=== PATIENT | female | born 1960 | race Caucasian/White ===

== ENCOUNTER 2017-07-01 16:06 | Emergency (ER) | payer BC ==
[2015-09-07 12:22] VITALS: Ht 167.6 cm; Wt 61.2 kg
[~2017-07-01] VITALS: Ht 167.6 cm; Wt 61.2 kg
[~2017-07-01 16:06] MED LIST: AMOX-559 PO; ASPI-757 PO; ASPI81TA94 PO; AUG875 PO; AZIT-18 PO; BUPR-136 PO; CEF300 PO; CEP500 PO; CYCL10TA29 PO; DIAZ-308 PO; DULO20CA16 PO; ENO30I SC; ENO40I SQ; EST42T PV; ESTR0.62 PO; FLU20 PO; GUAI10LI10 PO; HYDR-2946 PO; HYDR-317 PO; LEV75 PO; LEVO-85 PO; LEVO50TA86 PO; LEVO75TA68 PO; LOR5/325 PO; METR-1 PO; NIA500 PO; OMEP-218 PO; OXYC-865 PO; PARO10TA80 PO; PRAV80TA29 PO; SIMV10TA96 PO; VENL75TA12 PO; WAR5 PO
[2017-07-01] MEDS ORDERED: ASPIRIN 81 MG CHEW PO ONE (16:40)
--- NOTE | 2017-07-01 16:42 | EKG ---
FACILITY: [facility] - [place] PATIENT NAME: JUJU MARX : [id number] MR: [id number] V: [id number] EXAM DATE: ORDERING PHYSICIAN: MANISH GIANG TECHNOLOGIST: Test Reason : Blood Pressure : / mmHG Vent. Rate : 099 BPM Atrial Rate : 096 BPM P-R Int : 178 ms QRS Dur : 072 ms QT Int : 336 ms P-R-T Axes : 090 039 040 degrees QTc Int : 431 ms Sinus rhythm with frequent PACs Possible previous anterior/septal infarct vs. lead placement Abnormal ECG Confirmed by CATHLEEN MCKEON ([id number]) on 07/02/2017 6:46:30 AM Referred By: Confirmed By:CATHLEEN MKCEON
--- NOTE | 2017-07-01 16:47 | ER Report ---
History and Physical Time Seen By MD: 16:15 Hx. of Stated Complaint: CHEST TIGHTNESS FOR THE LAST 2 WEEKS. PAIN RADIATES UP INTO NECK AND LEFT SIDE OF COLLARBONE HPI/ROS CHIEF COMPLAINT: Chest pain HISTORY OF PRESENT ILLNESS: Patient is a 56-year-old female who presents to ED with complaint of chest pain that started about 2 weeks ago. She states that she has had pain intermittently. She states that she has noted this with exertion at times and also with drinking wine. She has noted some radiation of the pain into her car when area and also left upper arm area. She states that she felt her heart was racing intermittently as well has had problems with this in the past. Patient states that she has recently started a cholesterol medication due to hyperlipidemia. She denies any blood pressure issues. She denies any smoking. She denies any previous blood clots. She did complete a trip by air to [facility] 2 months ago. She states that she had noticed some left leg pain but no swelling recently. She denies any acute injury. She has felt intermittently short of breath. Patient states that she has no history of cardiac disease. She states that she has had mitral valve prolapse as well as tachycardia in the past. She denies any abnormal heart rhythms. REVIEW OF SYSTEMS: Constitutional: No fever, no chills. Eyes: No discharge. ENT: No sore throat. Cardiovascular: See history of present illness. Respiratory: See history of present illness. No cough. Gastrointestinal: No abdominal pain, no vomiting. Genitourinary: No hematuria. Musculoskeletal: No back pain. Skin: No rashes. Neurological: No headache. Allergies: Coded Allergies: corn (Verified Allergy, Mild, RUNNY NOSE, 04/09/17) Home Meds Reported Medications Bupropion Hcl (BUPROPION HCL SR) 150 Mg Tablet.er, 150 MG PO BID 04/09/17 Aspirin (ASPIRIN) 81 Mg Tab.chew, 81 MG PO QDAY, TAB.CHEW 04/09/17 Pravastatin Sodium (PRAVASTATIN SODIUM) 80 Mg Tablet, 80 MG PO QDAY 04/09/17 Levothyroxine Sodium (LEVOTHYROXINE SODIUM) 50 Mcg Tablet, 50 MCG PO QDAY 11/11/14 Venlafaxine Hcl (VENLAFAXINE HCL) 75 Mg Tab, 75 MG PO TID, #5 TAB TAKE 1 TABLET BY MOUTH THREE TIMES A DAY 11/26/13 Discontinued Scripts Cefdinir 300 Mg Cap (OMNICEF 300 MG CAP (OR EQUIV)) 300 Mg Cap, 300 MG PO BID for 10 Days, #20 CAP Prov:ALISE TORRES JR, MD 04/08/17 Reviewed Nurses Notes: Yes Old Medical Records Reviewed: Yes Hx Smoking: No Smoking Status: Never Smoker Exposure to Second Hand Smoke?: No Hx Substance Use Disorder: No Hx Alcohol Use: No Constitutional Vital Sign - Last 24 Hours 07/01/17 07/01/17 07/01/17 07/01/17 16:09 16:11 16:21 16:30 Temp 97.6 Pulse 95 88 Resp 24 32 B/P (MAP) 147/86 (106) 147/86 141/112 (122) Pulse Ox 97 95 O2 Delivery Room Air 07/01/17 07/01/17 07/01/17 07/01/17 16:36 16:45 16:51 17:00 Pulse 91 86 Resp 10 26 B/P (MAP) 133/95 (108) 129/91 (104) Pulse Ox 98 96 07/01/17 07/01/17 07/01/17 07/01/17 17:06 17:15 17:21 17:30 Pulse 118 B/P (MAP) 118/86 (97) 116/73 (87) Pulse Ox 96 07/01/17 07/01/17 07/01/17 07/01/17 17:45 17:56 18:00 18:05 Pulse 91 91 Resp 14 9 B/P (MAP) 137/90 (106) 123/80 (94) Pulse Ox 94 96 07/01/17 07/01/17 07/01/17 07/01/17 18:15 18:20 18:30 18:35 Pulse 86 88 Resp 23 19 B/P (MAP) 124/80 (95) 117/93 (101) Pulse Ox 95 94 07/01/17 07/01/17 07/01/17 18:45 18:50 19:00 Pulse 87 Resp 10 B/P (MAP) 121/87 (98) 113/93 (100) Pulse Ox 95 Physical Exam General Appearance: The patient is alert, has no immediate need for airway protection and no signs of toxicity. Patient appears to be no acute distress. Eyes: Pupils equal and round no pallor or injection. ENT, Mouth: Mucous membranes are moist. Respiratory: There are no retractions, lungs are clear to auscultation. Cardiovascular: Regular rate and rhythm. Gastrointestinal: There is some epigastric and left upper quadrant tenderness with palpation. No rebound or guarding. Normal bowel sounds in all 4 quadrants.. Neurological: Cranial nerves II through XII intact. Skin: Warm and dry, no rashes. Musculoskeletal: Neck is supple non tender. Extremities are nontender, nonswollen and have full range of motion. No edema noted to bilateral lower extremities. PT and DP pulses are 2+ with normal capillary refill. DIFFERENTIAL DIAGNOSIS: After history and physical exam differential diagnosis was considered for chest pain including but not limited to myocardial ischemia, pericarditis pulmonary embolus, chest wall pain, pleural inflammation and pulmonary infectious causes. Medical Decision Making Data Points Result Diagram: 07/01/17 1625 07/01/17 1625 Laboratory Hematology Test 07/01/17 16:25 07/01/17 19:39 Red Blood Count 5.17 M/uL (4.17-5.56) Mean Corpuscular Volume 88.0 fL (80.0-96.0) Mean Corpuscular Hemoglobin 29.3 pg (26.0-33.0) Mean Corpuscular Hemoglobin Concent 33.3 g/dL (32.0-36.0) Red Cell Distribution Width 13.4 % (11.5-14.5) Mean Platelet Volume 7.3 fL (7.2-11.1) Neutrophils (%) (Auto) 47.8 % (39.4-72.5) Lymphocytes (%) (Auto) 31.8 % (17.6-49.6) Monocytes (%) (Auto) 11.7 % (4.1-12.4) Eosinophils (%) (Auto) 7.6 % (0.4-6.7) Basophils (%) (Auto) 1.1 % (0.3-1.4) Nucleated RBC Relative Count (auto) 0.0 /100WBC Neutrophils # (Auto) 2.9 K/uL (2.0-7.4) Lymphocytes # (Auto) 1.9 K/uL (1.3-3.6) Monocytes # (Auto) 0.7 K/uL (0.3-1.0) Eosinophils # (Auto) 0.5 K/uL (0.0-0.5) Basophils # (Auto) 0.1 K/uL (0.0-0.1) Nucleated RBC Absolute Count (auto) 0.00 K/uL Peripheral Blood Smear No Y/N Prothrombin Time 13.0 seconds (12.0-14.4) Prothromb Time International Ratio 0.98 Activated Partial Thromboplast Time 29 seconds (23-35) D-Dimer Quantitative (PE/DVT) 0.31 ug/ml (0-0.50) Sodium Level 138 mmol/L (137-145) Potassium Level 3.9 mmol/L (3.5-5.0) Chloride Level 98 mmol/L (98-107) Carbon Dioxide Level 27 mmol/L (22-31) Blood Urea Nitrogen 23 mg/dl (7-18) Creatinine 0.80 mg/dl (0.52-1.04) Glomerular Filtration Rate Calc > 60.0 Random Glucose 93 mg/dl (75-110) Calcium Level 9.5 mg/dl (8.4-10.2) Total Bilirubin 0.4 mg/dl (0.2-1.3) Aspartate Amino Transf (AST/SGOT) 31 U/L (0-35) Alanine Aminotransferase (ALT/SGPT) 39 U/L (0-56) Alkaline Phosphatase 95 U/L (0-126) B-Type Natriuretic Peptide 8 pg/ml (0-100) Total Protein 8.4 gm/dl (6.3-8.2) Albumin 4.4 g/dl (3.5-5.0) Troponin I < 0.012 ng/ml Chemistry Test 07/01/17 16:25 07/01/17 19:39 White Blood Count 6.0 k/uL (4.5-11.0) Red Blood Count 5.17 M/uL (4.17-5.56) Hemoglobin 15.2 g/dL (12.0-16.0) Hematocrit 45.5 % (34.0-47.0) Mean Corpuscular Volume 88.0 fL (80.0-96.0) Mean Corpuscular Hemoglobin 29.3 pg (26.0-33.0) Mean Corpuscular Hemoglobin Concent 33.3 g/dL (32.0-36.0) Red Cell Distribution Width 13.4 % (11.5-14.5) Platelet Count 323 K/uL (150-450) Mean Platelet Volume 7.3 fL (7.2-11.1) Neutrophils (%) (Auto) 47.8 % (39.4-72.5) Lymphocytes (%) (Auto) 31.8 % (17.6-49.6) Monocytes (%) (Auto) 11.7 % (4.1-12.4) Eosinophils (%) (Auto) 7.6 % (0.4-6.7) Basophils (%) (Auto) 1.1 % (0.3-1.4) Nucleated RBC Relative Count (auto) 0.0 /100WBC Neutrophils # (Auto) 2.9 K/uL (2.0-7.4) Lymphocytes # (Auto) 1.9 K/uL (1.3-3.6) Monocytes # (Auto) 0.7 K/uL (0.3-1.0) Eosinophils # (Auto) 0.5 K/uL (0.0-0.5) Basophils # (Auto) 0.1 K/uL (0.0-0.1) Nucleated RBC Absolute Count (auto) 0.00 K/uL Peripheral Blood Smear No Y/N Prothrombin Time 13.0 seconds (12.0-14.4) Prothromb Time International Ratio 0.98 Activated Partial Thromboplast Time 29 seconds (23-35) D-Dimer Quantitative (PE/DVT) 0.31 ug/ml (0-0.50) Glomerular Filtration Rate Calc > 60.0 Calcium Level 9.5 mg/dl (8.4-10.2) Total Bilirubin 0.4 mg/dl (0.2-1.3) Aspartate Amino Transf (AST/SGOT) 31 U/L (0-35) Alanine Aminotransferase (ALT/SGPT) 39 U/L (0-56) Alkaline Phosphatase 95 U/L (0-126) B-Type Natriuretic Peptide 8 pg/ml (0-100) Total Protein 8.4 gm/dl (6.3-8.2) Albumin 4.4 g/dl (3.5-5.0) Troponin I < 0.012 ng/ml Coagulation Test 07/01/17 16:25 Prothrombin Time 13.0 seconds Prothromb Time International Ratio 0.98 Activated Partial Thromboplast Time 29 seconds D-Dimer Quantitative (PE/DVT) 0.31 ug/ml EKG/Imaging EKG Interpretation 12 lead EK:16 Rhythm: Normal sinus rhythm, sinus arrhythmia Waldo: normal QRS: normal ST segments: No acute ST changes identified. 12 lead EK:58 Rhythm: Sinus rhythm, rate 82 bpm Waldo: normal QRS: normal ST segments: No acute ST changes identified. Monitor Interpretation: Normal Sinus Rhythm ED Course/Re-evaluation ED Course Obtain labs, EKG, chest x-ray. Patient will be given aspirin 324 mg by mouth now. Wells Criteria for PE: 1.5 - Low Risk HEART Score: 3 - Low Score 07/01/2017 6:03:14 pm -discussed labs and chest x-ray with patient. Everything appears to be essentially normal this point. Discussed that will check a TSH as well as repeat 3 hour troponin. 07/01/2017 8:29:33 pm - this normal troponin and EKG with patient. She was having some palpitations and tachycardia so will wear a Holter monitor for her. Will give her referral to cardiology. Advised follow-up with primary care provider as well. Decision to Disposition Date: Jul 01, 2017 Decision to Disposition Time: 20:30 Depart Departure Latest Vital Signs Vital Signs Date Time Temp Pulse Resp B/P (MAP) Pulse Ox O2 Delivery O2 Flow Rate FiO2 07/01/17 19:00 113/93 (100) 07/01/17 18:50 87 10 95 07/01/17 16:11 97.6 Room Air Impression: Primary Impression: Chest pain Additional Impression: Palpitations Condition: Improved Disposition: HOME OR SELF-CARE Referrals: CARDIOLOGY Patient Instructions: Chest Pain (ED), Holter Monitoring (ED), Palpitations (ED ) Additional Instructions: Follow-up with primary care provider in cardiology in 2-3 days. If having any worsening or concerning symptoms may return to the emergency department. Problem Qualifiers Primary Impression: Chest pain Chest pain type: unspecified Qualified Codes: R07.9 - Chest pain, unspecified MANISH GIANG PA-C Jul 01, 2017 16:47
[2017-07-01 16:58] LABS: PLATELET COUNT, AUTOMATED 323 K/uL (150-450)
[2017-07-01 17:11] LABS: INR 0.98
--- NOTE | 2017-07-01 17:18 | RADIOLOGY IMAGING REPORT ---
FACILITY: [facility] - [place] PATIENT NAME: Donna Caballero : 1960 MR: [id number] V: [id number] EXAM DATE: ORDERING PHYSICIAN: MANISH GIANG TECHNOLOGIST: Location: [facility] [place] Patient: Donna Caballeor : 1960 Visit/Account:[id number] Date of Sevice: 07/01/2017 Exam type: CHEST SINGLE AP History: Chest Pain, tightness x2 weeks, nonsmoker, history of PE and pneumonia Comparison: October 22, 2015. Findings: EKG leads overlie the thorax. The lungs are free of acute effusions, infiltrates or edema. There is no demonstration of a pneumothorax or pneumomediastinum. The cardiac silhouette is normal. Patient slightly rotated towards the right IMPRESSION: 1. No acute cardiopulmonary process is seen Report Dictated By: Radha Jernigan MD at 07/01/2017 5:12 PM Report E-Signed By: Radha Jernigan MD at 07/01/2017 5:14 PM WSN:[id number]
[2017-07-01 20:15] VITALS: BP 133/95
--- NOTE | 2017-07-01 21:22 | EKG ---
FACILITY: [facility] [place] PATIENT NAME: JUJU MARX : [id number] MR: [id number] V: [id number] EXAM DATE: ORDERING PHYSICIAN: MANISH GIANG TECHNOLOGIST: Merissa Test Reason : CP Blood Pressure : / mmHG Vent. Rate : 082 BPM Atrial Rate : 082 BPM P-R Int : 158 ms QRS Dur : 068 ms QT Int : 396 ms P-R-T Axes : 061 059 066 degrees QTc Int : 462 ms Sinus rhythm Possible previous anterior/septal infarct vs. lead placement Abnormal ECG Confirmed by CATHLEEN MCKEON ([id number]) on 07/02/2017 6:50:19 AM Referred By: Confirmed By:CATHLEEN MCKEON
== END 2017-07-01 21:17 | disposition home or self-care (01) ==
LOC: ER 16:09
DX: R07.89 Other chest pain (principal); R00.2 Palpitations; R94.31 Abnormal electrocardiogram [ECG] [EKG]; E78.5 Hyperlipidemia, unspecified; R06.02 Shortness of breath
CPT/HCPCS: 71045; 82040; 82247; 82310; 82374; 82435; 82565; 82947; 83880; 84075; 84132; 84155; 84295; 84436; 84443; 84450; 84460; 84484; 84520; 85025; 85379; 85610; 85730; 93005; 99284

== ENCOUNTER → 2017-07-02 | Outpatient (CLI) | payer BC ==
[2015-09-07 12:22] VITALS: BMI 23.5
--- NOTE | 2017-07-05 03:28 | RT HOLTER TEST ---
[place] [facility] [place] NAME: JUJU MARX : [id number] MR: [id number] V: [id number] EXAM DATE: ORDERING PHYSICIAN: MANISH GIANG TECHNOLOGIST: JULIO CESAR Hood-up date: 2017-07-02 12:52:00 Duration: 47:59:00 Test Indications: CP, PALPITATIONS, TACHYCARDIA Medications: 628439 QRS complexes 310 Ventricular ectopics which represent <1 % of total QRS comp. 01683 Supraventricular ectopics which represent 4 % of total QRS comp. * Paced QRS complexes which represent % of total QRS comp. VENTRICULAR ECTOPY 308 Isolated 0 Bigeminal Cycles 1 Couplets 0 Runs 0 Beats in Runs * Beats LONGEST at * BPM at :: -- * Beats FASTEST at * BPM at :: -- SUPRAVENTRICULAR ECTOPY 25839 Isolated 646 Couplets 107 Runs 337 Beats in Runs 4 Beats LONGEST at 158 BPM at 11:10:21 2017-07-03 3 Beats FASTEST at 182 BPM at 05:59:43 2017-07-03 HEART RATES 71 MIN at 19:09:21 2017-07-02 99 AVG 200 MAX at 08:17:42 2017-07-04 LONGEST RR 1.264 secs at 06:09:56 2017-07-04 S-T LEVELS Channel 1 -12.800 mm MIN at 12:52:00 2017-07-02 -12.800 mm MAX at 12:52:00 2017-07-02 Channel 2 -12.800 mm MIN at 12:52:00 2017-07-02 -12.800 mm MAX at 12:52:00 2017-07-02 Channel 3 -12.800 mm MIN at 12:52:00 2017-07-02 -12.800 mm MAX at 12:52:00 2017-07-02 Basic rhythm is sinus. Multiple premature ventricular beats without malignant arrhythmia. Very frequent premature atrial beats mostly from ectopic atrial pacemakers. Frequent runs of SVT with rates up to approx. 200/min. Confirmed by CHAR ALBERTO ([id number]) on 07/05/2017 3:27:25 AM Referred By: MORELIA BHARDWAJ Overread By: CHAR ALBERTO
== END ==
LOC: RESP 12:32
PROVIDERS: ATTEND Physician Assistant Medical
DX: R07.9 Chest pain, unspecified (principal); R00.0 Tachycardia, unspecified
CPT/HCPCS: 93225; 93226

== ENCOUNTER → 2017-07-15 | Outpatient (CLI) | payer BC ==
[2015-09-07 12:22] VITALS: BMI 23.5
--- NOTE | 2017-07-16 09:56 | RADIOLOGY IMAGING REPORT ---
FACILITY: [facility] - [place] PATIENT NAME: JUJU MARX : [id number] MR: [id number] V: [id number] EXAM DATE: ORDERING PHYSICIAN: MORELIA BHARDWAJ TECHNOLOGIST: Ralph Mart EXAMINATION:TWO-DIMENSIONAL ECHOCARDIOGRAPH REASON:SUPERVENTRICULAR TACHYCARDIA. 2D Measurements (normal values in centimeters) LV endLV endRV endVent.LV PostAorticLeftPercent DiastolicSystolicDiastolicSeptumWallRootAtriumShortening (3.5-5.7)(0.9-2.6)(0.6-1.1)(0.6-1.1)(2.0-3.7)(1.9-4.0)(25-35%) [id number]% STROKE VOLUME: 47 mL ESTIMATED EJECTION FRACTION:70% PARASTERNAL LONG AXIS: Overall left ventricular systolic function appears to be normal. The patient appears to be in sinus rhythm. The right ventricle is mildly enlarged. The other chamber sizes are normal. The right ventricle appears to contract normally with a TAPSE 1.8. Color examination of the aortic valve was unremarkable. Color examination of the mitral valve revealed a trace of mitral insufficiency present. The aortic valve and mitral valve both appear to open normally. PARASTERNAL SHORT AXIS: Overall left ventricular function again appears to be normal. Chamber sizes appear to be normal. The right ventricle being slightly enlarged. Color examination of the pulmonic valve reveals a trace of pulmonic insufficiency. The aortic valve is trileaflet in configuration and appears to open normally. The pulmonic valve also appears to open normally. Tricuspid valve appears normal with some tricuspid insufficiency present. APICAL FOUR AND TWO CHAMBER: Normal left ventricular systolic function. Trace amount of tricuspid insufficiency is noted. Tricuspid regurgitation V-max is measured at 2.35 m/sec. Estimated right atrial pressure is 8 mmHg. The aortic valve area and mitral valve area both measure within normal range at 2.9 and 3.7 cm2 respectively. Left atrial and right atrial volumes are measured within normal range at 18 and 17 mL/m2. Questionable small atrial septal defect with left to right shunt is noted. No wall motion abnormal lities are noted. SUBCOSTAL VIEW: No pericardial effusion was noted. Questionable small atrial septal defect is noted mid-septum. IVC is normal in size. Agitated saline bubble contrast study was done. No obvious bubbler crossover was noted but Valsalva maneuver was not done. Doppler examination of the mitral valve in diastole does reveal an E to A wave reversal. OVERALL IMPRESSION: 1. Normal left ventricular ejection fraction of 70% with a grade 1/4 decrease in diastolic function. 2. Normal chamber sizes with the right ventricle being borderline enlarged. All of the other chamber sizes are normal. 3. A trileaflet aortic valve with no aortic stenosis nor insufficiency. 4. A trace of pulmonic insufficiency and a trace to mild amount of tricuspid insufficiency with estimated right ventricular systolic pressures of 30 mmHg which is within normal ranges. 5. A questionable small mid-atrial septal defect although an agitated saline bubble contrast study was done and no bubble crossovers were seen but a Valsalva maneuver was not done. There was a suggestion of a small asd on color exam. 6. No thrombi noted in any of the chambers but the left atrial appendage was not seen. 7. The patient appears to be in sinus rhythm throughout this echocardiograph. Dictated by: Parveen Bruno M.D. on 07/15/2017 at 21:13 Transcribed by: JI on 07/15/2017 at 23:05 Approved by: Parveen Bruno M.D. on 07/16/2017 at 9:54 [facility]
== END ==
LOC: US 01:39
PROVIDERS: ATTEND Family Medicine
DX: I51.7 Cardiomegaly (principal); I37.1 Nonrheumatic pulmonary valve insufficiency; I07.1 Rheumatic tricuspid insufficiency
CPT/HCPCS: 93306

== ENCOUNTER → 2017-09-17 | Outpatient (REF) | payer BC ==
[2015-09-07 12:22] VITALS: BMI 23.5
[2017-09-17 18:02] LABS: PLATELET COUNT, AUTOMATED 358 K/uL (150-450)
== END ==
PROVIDERS: ATTEND Nurse Practitioner Family
DX: R53.83 Other fatigue (principal)
CPT/HCPCS: 82040; 82247; 82310; 82374; 82435; 82565; 82947; 84075; 84132; 84155; 84295; 84443; 84450; 84460; 84520; 85025

== ENCOUNTER 2017-10-21 12:03 | Emergency (ER) | payer BC ==
[2015-09-07 12:22] VITALS: Wt 63.5 kg
[2017-10-21] MEDS ORDERED: NS(*) 0.9% 1000 ML BAG 1,000 ML IV ONE (12:23)
--- NOTE | 2017-10-21 12:33 | ER Report ---
History and Physical Time Seen By MD: 12:25 Hx. of Stated Complaint: PATIENT REPORTS FEELING ACHY ALL OVER AND IS ALSO REPORTING CHEST PAIN. SHE IS ALSO REPORTING NAUSEA AND SOME DIARRHEA HPI/ROS CHIEF COMPLAINT: Weakness, malaise HISTORY OF PRESENT ILLNESS: Patient is a 57-year-old female who presents the ED with complaint of a one-day history of general malaise and weakness. She states that she 1st started noticed some body aches including some abdominal and chest pain and felt slightly short of breath and weak particularly with walking. She states that she has not noted any fever. 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 She denies any vomiting but has had some nausea and diarrhea. Patient states that she has not taken any medication for her symptoms. She denies any hematuria, dysuria, increased urinary frequency. She states that she has not really noted a cough until she arrived at the emergency room here. She is not injected much fluid due to the nausea. REVIEW OF SYSTEMS: Constitutional: No fever, no chills. Eyes: No discharge. ENT: Patient has noted a sore throat but denies any rhinorrhea Cardiovascular: See history of present illness. No palpitations. Respiratory: See history of present illness. Gastrointestinal: See history of present illness. Genitourinary: See history of present illness. Musculoskeletal: No back pain. Skin: No rashes. Neurological: No headache. Allergies: Coded Allergies: corn (Verified Allergy, Mild, RUNNY NOSE, 04/09/17) Home Meds Reported Medications Bupropion Hcl (BUPROPION HCL SR) 150 Mg Tablet.er, 150 MG PO BID 04/09/17 Aspirin (ASPIRIN) 81 Mg Tab.chew, 81 MG PO QDAY, TAB.CHEW 04/09/17 Pravastatin Sodium (PRAVASTATIN SODIUM) 80 Mg Tablet, 80 MG PO QDAY 04/09/17 Levothyroxine Sodium (LEVOTHYROXINE SODIUM) 50 Mcg Tablet, 50 MCG PO QDAY 11/11/14 Venlafaxine Hcl (VENLAFAXINE HCL) 75 Mg Tab, 75 MG PO TID, #5 TAB TAKE 1 TABLET BY MOUTH THREE TIMES A DAY 11/26/13 Reviewed Nurses Notes: Yes Old Medical Records Reviewed: Yes Hx Smoking: No Smoking Status: Never Smoker Exposure to Second Hand Smoke?: No Hx Substance Use Disorder: No Hx Alcohol Use: No Constitutional Vital Sign - Last 24 Hours 10/21/17 10/21/17 10/21/17 10/21/17 12:09 12:11 12:18 12:30 Temp 98.7 Pulse 118 115 Resp 24 12 B/P (MAP) 138/91 138/91 (107) 135/92 (106) Pulse Ox 95 97 O2 Delivery Room Air 10/21/17 10/21/17 10/21/17 10/21/17 12:33 12:48 13:00 13:03 Pulse 100 95 94 Resp 22 19 10 B/P (MAP) 129/86 (100) Pulse Ox 98 98 98 10/21/17 10/21/17 13:18 13:23 Pulse 92 Resp 9 23 Pulse Ox 98 94 Physical Exam General Appearance: The patient is alert, has no immediate need for airway protection and no signs of toxicity. Patient appears to be in no acute distress. Eyes: Pupils equal and round no pallor or injection. ENT, Mouth: Mucous membranes are moist. Respiratory: There are no retractions, lungs are clear to auscultation. Cardiovascular: Slightly tachycardic with normal rhythm. Gastrointestinal: There is some mild right upper quadrant, epigastric, left per quadrant tenderness with palpation. No rebound or guarding is appreciated. Bowel sounds normal all 4 quadrants. Skin: Warm and dry, no rashes. Musculoskeletal: Neck is supple non tender. Extremities are nontender, nonswollen and have full range of motion. DIFFERENTIAL DIAGNOSIS: After history and physical exam differential diagnosis was considered for abdominal pain including but not limited to appendicitis, cholecystitis, gastritis and urinary tract infection. Medical Decision Making Data Points Result Diagram: 10/21/17 1225 10/21/17 1225 Laboratory Hematology Test 10/21/17 12:25 10/21/17 12:32 10/21/17 13:24 Red Blood Count 4.41 M/uL (4.17-5.56) Mean Corpuscular Volume 83.9 fL (80.0-96.0) Mean Corpuscular Hemoglobin 27.9 pg (26.0-33.0) Mean Corpuscular Hemoglobin Concent 33.3 g/dL (32.0-36.0) Red Cell Distribution Width 13.9 % (11.5-14.5) Mean Platelet Volume 6.9 fL (7.2-11.1) Neutrophils (%) (Auto) 84.7 % (39.4-72.5) Lymphocytes (%) (Auto) 7.9 % (17.6-49.6) Monocytes (%) (Auto) 5.5 % (4.1-12.4) Eosinophils (%) (Auto) 1.3 % (0.4-6.7) Basophils (%) (Auto) 0.6 % (0.3-1.4) Nucleated RBC Relative Count (auto) 0.0 /100WBC Neutrophils # (Auto) 7.1 K/uL (2.0-7.4) Lymphocytes # (Auto) 0.7 K/uL (1.3-3.6) Monocytes # (Auto) 0.5 K/uL (0.3-1.0) Eosinophils # (Auto) 0.1 K/uL (0.0-0.5) Basophils # (Auto) 0.0 K/uL (0.0-0.1) Nucleated RBC Absolute Count (auto) 0.00 K/uL Prothrombin Time 13.1 seconds (12.0-14.4) Prothromb Time International Ratio 0.99 Activated Partial Thromboplast Time 30 seconds (23-35) D-Dimer Quantitative (PE/DVT) 0.53 ug/ml (0-0.50) Sodium Level 139 mmol/L (137-145) Potassium Level 3.9 mmol/L (3.5-5.0) Chloride Level 101 mmol/L (98-107) Carbon Dioxide Level 23 mmol/L (22-31) Blood Urea Nitrogen 14 mg/dl (7-18) Creatinine 0.70 mg/dl (0.52-1.04) Glomerular Filtration Rate Calc > 60.0 Random Glucose 105 mg/dl (75-110) Calcium Level 9.3 mg/dl (8.4-10.2) Total Bilirubin 0.4 mg/dl (0.2-1.3) Aspartate Amino Transf (AST/SGOT) 26 U/L (0-35) Alanine Aminotransferase (ALT/SGPT) 32 U/L (0-56) Alkaline Phosphatase 93 U/L (0-126) Troponin I < 0.012 ng/ml B-Type Natriuretic Peptide 14 pg/ml (0-100) Total Protein 7.9 gm/dl (6.3-8.2) Albumin 4.3 g/dl (3.5-5.0) Lipase 131 U/L (23-300) Influenza Virus Type A (PCR) Negative (NEGATIVE) Influenza Virus Type B (PCR) Negative (NEGATIVE) Urine Color Straw Urine Clarity Clear Urine pH 8.0 pH (4.8-9.5) Urine Specific [place] 1.004 Urine Protein Negative mg/dL (NEGATIVE) Urine Glucose (UA) Negative mg/dL (NEGATIVE) Urine Ketones Negative mg/dL (NEGATIVE) Urine Blood Negative (NEGATIVE) Urine Nitrite Negative (NEGATIVE) Urine Bilirubin Negative (NEGATIVE) Urine Urobilinogen Negative mg/dL (0.2-1.9) Urine Leukocyte Esterase Negative (NEGATIVE) Urine RBC None /HPF (0-2/HPF) Urine WBC None /HPF (0-5/HPF) Urine Squamous Epithelial Cells None /LPF (</=FEW) Urine Bacteria Negative /HPF (NONE-FEW) Urine Mucus None /HPF (NONE-FEW) Chemistry Test 10/21/17 12:25 10/21/17 12:32 10/21/17 13:24 White Blood Count 8.4 k/uL (4.5-11.0) Red Blood Count 4.41 M/uL (4.17-5.56) Hemoglobin 12.3 g/dL (12.0-16.0) Hematocrit 37.0 % (34.0-47.0) Mean Corpuscular Volume 83.9 fL (80.0-96.0) Mean Corpuscular Hemoglobin 27.9 pg (26.0-33.0) Mean Corpuscular Hemoglobin Concent 33.3 g/dL (32.0-36.0) Red Cell Distribution Width 13.9 % (11.5-14.5) Platelet Count 406 K/uL (150-450) Mean Platelet Volume 6.9 fL (7.2-11.1) Neutrophils (%) (Auto) 84.7 % (39.4-72.5) Lymphocytes (%) (Auto) 7.9 % (17.6-49.6) Monocytes (%) (Auto) 5.5 % (4.1-12.4) Eosinophils (%) (Auto) 1.3 % (0.4-6.7) Basophils (%) (Auto) 0.6 % (0.3-1.4) Nucleated RBC Relative Count (auto) 0.0 /100WBC Neutrophils # (Auto) 7.1 K/uL (2.0-7.4) Lymphocytes # (Auto) 0.7 K/uL (1.3-3.6) Monocytes # (Auto) 0.5 K/uL (0.3-1.0) Eosinophils # (Auto) 0.1 K/uL (0.0-0.5) Basophils # (Auto) 0.0 K/uL (0.0-0.1) Nucleated RBC Absolute Count (auto) 0.00 K/uL Prothrombin Time 13.1 seconds (12.0-14.4) Prothromb Time International Ratio 0.99 Activated Partial Thromboplast Time 30 seconds (23-35) D-Dimer Quantitative (PE/DVT) 0.53 ug/ml (0-0.50) Glomerular Filtration Rate Calc > 60.0 Calcium Level 9.3 mg/dl (8.4-10.2) Total Bilirubin 0.4 mg/dl (0.2-1.3) Aspartate Amino Transf (AST/SGOT) 26 U/L (0-35) Alanine Aminotransferase (ALT/SGPT) 32 U/L (0-56) Alkaline Phosphatase 93 U/L (0-126) Troponin I < 0.012 ng/ml B-Type Natriuretic Peptide 14 pg/ml (0-100) Total Protein 7.9 gm/dl (6.3-8.2) Albumin 4.3 g/dl (3.5-5.0) Lipase 131 U/L (23-300) Influenza Virus Type A (PCR) Negative (NEGATIVE) Influenza Virus Type B (PCR) Negative (NEGATIVE) Urine Color Straw Urine Clarity Clear Urine pH 8.0 pH (4.8-9.5) Urine Specific [place] 1.004 Urine Protein Negative mg/dL (NEGATIVE) Urine Glucose (UA) Negative mg/dL (NEGATIVE) Urine Ketones Negative mg/dL (NEGATIVE) Urine Blood Negative (NEGATIVE) Urine Nitrite Negative (NEGATIVE) Urine Bilirubin Negative (NEGATIVE) Urine Urobilinogen Negative mg/dL (0.2-1.9) Urine Leukocyte Esterase Negative (NEGATIVE) Urine RBC None /HPF (0-2/HPF) Urine WBC None /HPF (0-5/HPF) Urine Squamous Epithelial Cells None /LPF (</=FEW) Urine Bacteria Negative /HPF (NONE-FEW) Urine Mucus None /HPF (NONE-FEW) Coagulation Test 10/21/17 12:25 Prothrombin Time 13.1 seconds Prothromb Time International Ratio 0.99 Activated Partial Thromboplast Time 30 seconds D-Dimer Quantitative (PE/DVT) 0.53 ug/ml Urinalysis Test 10/21/17 13:24 Urine Color Straw Urine Clarity Clear Urine pH 8.0 pH (4.8-9.5) Urine Specific [place] 1.004 Urine Protein Negative mg/dL (NEGATIVE) Urine Glucose (UA) Negative mg/dL (NEGATIVE) Urine Ketones Negative mg/dL (NEGATIVE) Urine Blood Negative (NEGATIVE) Urine Nitrite Negative (NEGATIVE) Urine Bilirubin Negative (NEGATIVE) Urine Urobilinogen Negative mg/dL (0.2-1.9) Urine Leukocyte Esterase Negative (NEGATIVE) Urine RBC None /HPF (0-2/HPF) Urine WBC None /HPF (0-5/HPF) Urine Squamous Epithelial Cells None /LPF (</=FEW) Urine Bacteria Negative /HPF (NONE-FEW) Urine Mucus None /HPF (NONE-FEW) EKG/Imaging EKG Interpretation 12 lead EKG: Rhythm: sinus tachycardia, rate [address] segments: No acute ST changes identified. There is some T-wave flattening in V1. Imaging CXR: IMPRESSION: Clear lungs. Report Dictated By: Bob Villavicencio at 10/21/2017 12:50 PM Report E-Signed By: Bob Villavicencio at 10/21/2017 12:50 PM CTA Chest: IMPRESSION: No evidence of pulmonary emboli Previously noted narrowing of the right subclavian vein appears less prominent Small hiatal hernia Report Dictated By: Radha Jernigan MD at 10/21/2017 1:56 PM Report E-Signed By: Radha Jernigan MD at 10/21/2017 2:05 PM ED Course/Re-evaluation Clinical Indication for ER IV: Hydration ED Course Will obtain labs. Patient will be given 1 L normal saline bolus. 10/21/2017 1:38:44 pm -discussed all lab results, EKG, chest x-ray with patient. All labs are essentially normal except for a slightly elevated d- dimer. Given her shortness of breath and initial tachycardia will obtain CT of the chest. Her tachycardia has improved into the 1 L normal saline and her nausea has also improved with 4 mg IV Zofran. 10/21/2017 2:17:35 pm - discussed the CT of the chest with patient. There appears to be no bone or and black. Given her symptoms she likely has some viral infection. Will prescribe her some Zofran and she may take Tylenol or Profen for body aches as needed. Decision to Disposition Date: Oct 21, 2017 Decision to Disposition Time: 14:18 Depart Departure Latest Vital Signs Vital Signs Date Time Temp Pulse Resp B/P (MAP) Pulse Ox O2 Delivery O2 Flow Rate FiO2 10/21/17 13:23 23 94 10/21/17 13:18 92 10/21/17 13:00 129/86 (100) 10/21/17 12:09 98.7 Room Air Impression: Primary Impression: URI (upper respiratory infection) Additional Impression: Nausea Condition: Improved Disposition: HOME OR SELF-CARE Referrals: MORELIA BHARDWAJ MD (PCP) New Scripts Ondansetron (ZOFRAN ODT) 4 Mg Tab.rapdis 4 MG PO Q6H Y for NAUSEA/VOMITING, #8 TAB.LIDIA Prov: MANISH GIANG PA-C 10/21/17 Patient Instructions: Acute Nausea and Vomiting (ED), Upper Respiratory Infection (ED) Additional Instructions: Stay well-hydrated. Follow-up with primary care provider in 2-3 days. If having any worsening or concerning symptoms may return to the emergency department. Problem Qualifiers Primary Impression: URI (upper respiratory infection) URI type: unspecified viral URI Qualified Codes: J06.9 - Acute upper respiratory infection, unspecified MANISH GIANG PA-C Oct 21, 2017 12:33
[2017-10-21 12:39] LABS: PLATELET COUNT, AUTOMATED 406 K/uL (150-450)
[2017-10-21] MEDS ORDERED: ONDANSETRON 4 MG/2 ML VIAL IVP ONE (12:45)
--- NOTE | 2017-10-21 12:54 | RADIOLOGY IMAGING REPORT ---
FAC[place] [facility] [place]IENT NAME: Donna Caballero : 1960 MR: [id number] V: [id number] EXAM DATE: ORDERING PHYSICIAN: MANISH GIANG TECHNOLOGIST: Location: [facility] Patient: Donna Caballero : 1960 Visit/Account:[id number] Date of Sevice: 10/21/2017 CHEST PA AND LAT Indication: Chest pain Comparison: Chest x-ray 07/01/2017. Findings: Lungs: Clear. Mediastinum/pulmonary vasculature: Heart size and pulmonary vasculature are normal. Bones/soft tissues: Normal. IMPRESSION: Clear lungs. Report Dictated By: Bob Villavicencio at 10/21/2017 12:50 PM Report E-Signed By: Bob Villavicencio at 10/21/2017 12:50 PM WSN:[id number]
[2017-10-21 12:55] LABS: INR 0.99
[2017-10-21 13:00] VITALS: BP 129/86
--- NOTE | 2017-10-21 13:19 | EKG ---
FACILITY: [facility] - [place] PATIENT NAME: JUJU MARX : [id number] MR: [id number] V: [id number] EXAM DATE: ORDERING PHYSICIAN: MANISH GIANG TECHNOLOGIST: GIGI Andrews Reason : CP Blood Pressure : / mmHG Vent. Rate : 109 BPM Atrial Rate : 109 BPM P-R Int : 146 ms QRS Dur : 072 ms QT Int : 316 ms P-R-T Axes : 064 048 065 degrees QTc Int : 425 ms Sinus tachycardia Septal infarct (cited on or before 21-OCT-2017) Abnormal ECG When compared with ECG of 01-JUL-2017 19:59, Previous ECG has undetermined rhythm, needs review Confirmed by MORELIA CEDENO ([id number]) on 10/22/2017 12:29:27 PM Referred By: MATT Confirmed By:MORELIA CEDENO
[2017-10-21] MEDS ORDERED: IOPAMIDOL 76% 75 ML INFUS BTL 75 ML ONE (13:28)
--- NOTE | 2017-10-21 14:10 | RADIOLOGY IMAGING REPORT ---
FACILITY: [facility] PATIENT NAME: Donna Caballero : 1960 MR: [id number] V: [id number] EXAM DATE: ORDERING PHYSICIAN: MANISH GIANG TECHNOLOGIST: Location: [facility] - [place] Patient: Donna Caballero : 1960 Visit/Account:[id number] Date of Sevice: 10/21/2017 CTA CHEST WW/O CNTR (PULM ANG) HISTORY: elevated d-dimer, tachy, SOB ADDITIONAL HISTORY: None. TECHNIQUE: CTA chest with intravenous contrast. Axial imaging acquired following administration of IV contrast timed for maximum opacification of the pulmonary arterial vasculature. Slab 3-D MIP kristine nstructed images were also created for further evaluation and interpretation. Reconstruction of the [facility] data set includes multiplanar 2-D in the sagittal and coronal planes and 3-D reconstructed bebeto nal slab MIP series. 3-D images were created by the technologist. Dose Lowering Technique One of the following dose optimization techniques was utilized in the performance of this exam: Autom ated exposure control; adjustment of the mA and/or kV according to the patient's size; or use of an i terative reconstruction technique. Specific details can be referenced in the facility's radiology C T exam operational policy. CONTRAST: 75 mL Isovue-370 COMPARISON: March 27, 2016 FINDINGS: Lungs/pleura: Negative. Heart/vessels: There is no evidence of pulmonary emboli. The previously noted narrowing of the righ t subclavian vein at the junction of the chest wall between the clavicle appears less prominent Mediastinum/lymph nodes: Negative. Visualized upper abdomen: There is a small hiatal hernia Bones/soft tissues: Negative. Additional findings: None IMPRESSION: No evidence of pulmonary emboli Previously noted narrowing of the right subclavian vein appears less prominent Small hiatal hernia Report Dictated By: Radha Jernigan MD at 10/21/2017 1:56 PM Report E-Signed By: Radha Jernigan MD at 10/21/2017 2:05 PM WSN:[id number]
[2017-10-21] MEDS ORDERED: ONDA4TAB PO (14:20)
== END 2017-10-21 14:30 | disposition home or self-care (01) ==
LOC: ER 12:06
DX: J06.9 Acute upper respiratory infection, unspecified (principal); R11.0 Nausea; R00.0 Tachycardia, unspecified; R94.31 Abnormal electrocardiogram [ECG] [EKG]
CPT/HCPCS: 71046; 71275; 81001; 83690; 83880; 84484; 85025; 85379; 85610; 85730; 87502; 93005; 96361; 96374; 99284; J2405; J7030; Q9967; 82040; 82247; 82310; 82374; 82435; 82565; 82947; 84075; 84132; 84155; 84295; 84450; 84460; 84520

== ENCOUNTER → 2018-03-24 | Outpatient (REF) | payer BC ==
[2015-09-07 12:22] VITALS: BMI 23.5
[~2018-03-24] MED LIST changes: +ONDA4TAB PO
== END ==
LOC: ZZSENDIN 17:04
PROVIDERS: ATTEND Family Medicine
DX: R51 Headache (principal)
CPT/HCPCS: 85651

== ENCOUNTER 2018-04-12 18:04 | Emergency (ER) | payer BC ==
[2015-09-07 12:22] VITALS: Wt 61.5 kg
--- NOTE | 2018-04-12 18:15 | ER Report ---
History and Physical Time Seen By MD: 18:15 HPI/ROS CHIEF COMPLAINT: Chest pain HISTORY OF PRESENT ILLNESS: 57-year-old female patient presents to emergency room with complaint of chest pain and vomiting. Patient states she's been having chest pain for the past 4 hours. She states that she is also had several bouts of vomiting. She states she's vomited approximately 5 times. She states that she had does have some abdominal pain in the upper abdomen. She denies having any diarrhea. Patient states she did have a bowel movement today. She states she does feel like she is distended. Patient has not taken any medication for this. She states that she has not had any shortness of breath. Patient denies any cardiac history. REVIEW OF SYSTEMS: Respiratory: No cough, no dyspnea. Cardiovascular: As noted above Gastrointestinal: As noted above Musculoskeletal: No back pain. Allergies: Coded Allergies: corn (Verified Allergy, Mild, RUNNY NOSE, 04/09/17) Home Meds Active Scripts Ondansetron (ZOFRAN ODT) 4 Mg Tab.rapdis, 4 MG PO Q6H PRN for NAUSEA/VOMITING, #20 TAB.LIDIA Prov:LUIS E CEJA [facility] 04/12/18 Promethazine Hcl (PROMETHAZINE HCL) 25 Mg Tablet, 25 MG PO Q8H PRN for NAUSEA/VOMITING, #12 TAB Prov:LUIS E CEJA [facility] 04/12/18 Metronidazole (FLAGYL) 500 Mg Tablet, 500 MG PO BID, #14 TAB Prov:LUIS E CEJA [facility] 04/12/18 Ciprofloxacin Hcl (CIPROFLOXACIN HCL) 500 Mg Tablet, 500 MG PO Q12H, #14 TAB Prov:LUIS E CEJA [facility] 04/12/18 Reported Medications Bupropion Hcl (BUPROPION HCL SR) 150 Mg Tablet.er, 150 MG PO BID 04/09/17 Aspirin (ASPIRIN) 81 Mg Tab.chew, 81 MG PO QDAY, TAB.CHEW 04/09/17 Pravastatin Sodium (PRAVASTATIN SODIUM) 80 Mg Tablet, 80 MG PO QDAY 04/09/17 Levothyroxine Sodium (LEVOTHYROXINE SODIUM) 50 Mcg Tablet, 50 MCG PO QDAY 11/11/14 Venlafaxine Hcl (VENLAFAXINE HCL) 75 Mg Tab, 75 MG PO TID, #5 TAB TAKE 1 TABLET BY MOUTH THREE TIMES A DAY 11/26/13 Discontinued Scripts Ondansetron (ZOFRAN ODT) 4 Mg Tab.rapdis, 4 MG PO Q6H PRN for NAUSEA/VOMITING, #8 TAB.LIDIA Prov:MANISH GIANG Andrew GOLDSTEIN 10/21/17 Past Medical/Surgical History Patient has a past medical history of tachycardia, DVT, frequent UTI, osteoporosis, arthritis, foot fracture, back pain, Carisa's disease. Patient has a surgical history of bladder repair, hysterectomy, foot surgery, right total hip, back surgery, eye surgery. Patient has a family medical history of CAD, dementia, [place], CHF, pneumonia, osteoporosis depression. Reviewed Nurses Notes: Yes Hx Smoking: No Smoking Status: Never Smoker Exposure to Second Hand Smoke?: No Hx Substance Use Disorder: No Hx Alcohol Use: No Constitutional Vital Sign - Last 24 Hours 04/12/18 04/12/18 04/12/18 04/12/18 18:04 18:09 18:13 18:19 Temp 98.5 Pulse ??? 108 102 Resp 18 36 B/P (MAP) 137/88 (104) 137/88 Pulse Ox 99 99 O2 Delivery Room Air 04/12/18 04/12/18 04/12/18 04/12/18 18:30 18:34 18:39 19:24 Pulse 95 ??? 92 Resp 11 19 9 B/P (MAP) 133/91 (105) Pulse Ox 98 97 97 04/12/18 04/12/18 04/12/18 04/12/18 19:39 19:44 19:58 19:59 Pulse 93 92 ??? Resp 7 18 13 B/P (MAP) 138/92 (107) Pulse Ox 95 97 97 04/12/18 04/12/18 04/12/18 20:00 20:05 20:20 Pulse 97 115 Resp 31 17 B/P (MAP) 140/84 (102) Physical Exam General Appearance: The patient is alert, has no immediate need for airway protection and no current signs of toxicity. Respiratory: Chest is non tender, lungs are clear to auscultation. Cardiac: regular rate and rhythm Gastrointestinal: Abdomen is soft and tender in the epigastric region, no masses, bowel sounds are hypoactive in the right lower quadrant. Musculoskeletal: Neck: Neck is supple and non tender. Extremities have full range of motion and are non tender. Skin: No rashes or lesions. DIFFERENTIAL DIAGNOSIS: After history and physical exam differential diagnosis was considered for chest pain including but not limited to myocardial ischemia, pericarditis pulmonary embolus, chest wall pain, pleural inflammation and pul monary infectious causes. Also included in the differential is a is abdominal pain including but not limited to appendicitis, cholecystitis, gastritis and urinary tract infection. Medical Decision Making Data Points Result Diagram: 04/12/183 04/12/181812 Laboratory Hematology Test 04/12/18 18:13 04/12/18 19:07 Red Blood Count 5.39 M/uL (4.17-5.56) Mean Corpuscular Volume 80.8 fL (80.0-96.0) Mean Corpuscular Hemoglobin 26.5 pg (26.0-33.0) Mean Corpuscular Hemoglobin Concent 32.8 g/dL (32.0-36.0) Red Cell Distribution Width 17.6 % (11.5-14.5) Mean Platelet Volume 6.8 fL (7.2-11.1) Neutrophils (%) (Auto) 86.4 % (39.4-72.5) Lymphocytes (%) (Auto) 5.6 % (17.6-49.6) Monocytes (%) (Auto) 6.2 % (4.1-12.4) Eosinophils (%) (Auto) 1.5 % (0.4-6.7) Basophils (%) (Auto) 0.3 % (0.3-1.4) Nucleated RBC Relative Count (auto) 0.0 /100WBC Neutrophils # (Auto) 12.1 K/uL (2.0-7.4) Lymphocytes # (Auto) 0.8 K/uL (1.3-3.6) Monocytes # (Auto) 0.9 K/uL (0.3-1.0) Eosinophils # (Auto) 0.2 K/uL (0.0-0.5) Basophils # (Auto) 0.0 K/uL (0.0-0.1) Nucleated RBC Absolute Count (auto) 0.00 K/uL Sodium Level 138 mmol/L (137-145) Potassium Level 3.8 mmol/L (3.5-5.0) Chloride Level 100 mmol/L (98-107) Carbon Dioxide Level 24 mmol/L (22-31) Blood Urea Nitrogen 22 mg/dl (7-18) Creatinine 0.70 mg/dl (0.52-1.04) Glomerular Filtration Rate Calc > 60.0 Random Glucose 107 mg/dl (75-110) Calcium Level 9.1 mg/dl (8.4-10.2) Total Bilirubin 0.3 mg/dl (0.2-1.3) Aspartate Amino Transf (AST/SGOT) 31 U/L (0-35) Alanine Aminotransferase (ALT/SGPT) 36 U/L (0-56) Alkaline Phosphatase 90 U/L (0-126) Troponin I < 0.012 ng/ml Total Protein 8.3 g/dl (6.3-8.2) Albumin 4.6 g/dl (3.5-5.0) Amylase Level 116 U/L (0-110) Lipase 439 U/L (23-300) Urine Color Straw Urine Clarity Clear Urine pH 6.0 pH (4.8-9.5) Urine Specific [place] 1.039 Urine Protein Negative mg/dL (NEGATIVE) Urine Glucose (UA) Negative mg/dL (NEGATIVE) Urine Ketones 20 mg/dL (NEGATIVE) Urine Blood Negative (NEGATIVE) Urine Nitrite Negative (NEGATIVE) Urine Bilirubin Negative (NEGATIVE) Urine Urobilinogen Negative mg/dL (0.2-1.9) Urine Leukocyte Esterase Negative (NEGATIVE) Urine RBC <1 /HPF (0-2/HPF) Urine WBC None /HPF (0-5/HPF) Urine Squamous Epithelial Cells Few /LPF (</=FEW) Urine Bacteria Few /HPF (NONE-FEW) Urine Mucus None /HPF (NONE-FEW) Chemistry Test 04/12/18 18:13 04/12/18 19:07 White Blood Count 14.0 k/uL (4.5-11.0) Red Blood Count 5.39 M/uL (4.17-5.56) Hemoglobin 14.3 g/dL (12.0-16.0) Hematocrit 43.5 % (34.0-47.0) Mean Corpuscular Volume 80.8 fL (80.0-96.0) Mean Corpuscular Hemoglobin 26.5 pg (26.0-33.0) Mean Corpuscular Hemoglobin Concent 32.8 g/dL (32.0-36.0) Red Cell Distribution Width 17.6 % (11.5-14.5) Platelet Count 458 K/uL (150-450) Mean Platelet Volume 6.8 fL (7.2-11.1) Neutrophils (%) (Auto) 86.4 % (39.4-72.5) Lymphocytes (%) (Auto) 5.6 % (17.6-49.6) Monocytes (%) (Auto) 6.2 % (4.1-12.4) Eosinophils (%) (Auto) 1.5 % (0.4-6.7) Basophils (%) (Auto) 0.3 % (0.3-1.4) Nucleated RBC Relative Count (auto) 0.0 /100WBC Neutrophils # (Auto) 12.1 K/uL (2.0-7.4) Lymphocytes # (Auto) 0.8 K/uL (1.3-3.6) Monocytes # (Auto) 0.9 K/uL (0.3-1.0) Eosinophils # (Auto) 0.2 K/uL (0.0-0.5) Basophils # (Auto) 0.0 K/uL (0.0-0.1) Nucleated RBC Absolute Count (auto) 0.00 K/uL Glomerular Filtration Rate Calc > 60.0 Calcium Level 9.1 mg/dl (8.4-10.2) Total Bilirubin 0.3 mg/dl (0.2-1.3) Aspartate Amino Transf (AST/SGOT) 31 U/L (0-35) Alanine Aminotransferase (ALT/SGPT) 36 U/L (0-56) Alkaline Phosphatase 90 U/L (0-126) Troponin I < 0.012 ng/ml Total Protein 8.3 g/dl (6.3-8.2) Albumin 4.6 g/dl (3.5-5.0) Amylase Level 116 U/L (0-110) Lipase 439 U/L (23-300) Urine Color Straw Urine Clarity Clear Urine pH 6.0 pH (4.8-9.5) Urine Specific [place] 1.039 Urine Protein Negative mg/dL (NEGATIVE) Urine Glucose (UA) Negative mg/dL (NEGATIVE) Urine Ketones 20 mg/dL (NEGATIVE) Urine Blood Negative (NEGATIVE) Urine Nitrite Negative (NEGATIVE) Urine Bilirubin Negative (NEGATIVE) Urine Urobilinogen Negative mg/dL (0.2-1.9) Urine Leukocyte Esterase Negative (NEGATIVE) Urine RBC <1 /HPF (0-2/HPF) Urine WBC None /HPF (0-5/HPF) Urine Squamous Epithelial Cells Few /LPF (</=FEW) Urine Bacteria Few /HPF (NONE-FEW) Urine Mucus None /HPF (NONE-FEW) Urinalysis Test 04/12/18 19:07 Urine Color Straw Urine Clarity Clear Urine pH 6.0 pH (4.8-9.5) Urine Specific [place] 1.039 Urine Protein Negative mg/dL (NEGATIVE) Urine Glucose (UA) Negative mg/dL (NEGATIVE) Urine Ketones 20 mg/dL (NEGATIVE) Urine Blood Negative (NEGATIVE) Urine Nitrite Negative (NEGATIVE) Urine Bilirubin Negative (NEGATIVE) Urine Urobilinogen Negative mg/dL (0.2-1.9) Urine Leukocyte Esterase Negative (NEGATIVE) Urine RBC <1 /HPF (0-2/HPF) Urine WBC None /HPF (0-5/HPF) Urine Squamous Epithelial Cells Few /LPF (</=FEW) Urine Bacteria Few /HPF (NONE-FEW) Urine Mucus None /HPF (NONE-FEW) EKG/Imaging EKG Interpretation 12 lead EKG: Rhythm: normal sinus rhythm [place]: normal QRS: normal ST segments: normal Imaging CT abdomen with IV contrast CT pelvis with IV contrast History: Nausea and vomiting COMPARISON STUDIES: none. TECHNIQUE: Axial CT images were obtained through the abdomen and pelvis during injection of nonionic iodinated intravenous contrast. Reformatted coronal and sagittal images were also obtained. Contrast: 75 ml of Isovue-370 IV contrast. One of the following dose optimization techniques was utilized in the performance of this exam: Automated exposure control; adjustment of the mA and/or kV according to the patient's size; or use of an iterative reconstruction technique. Specific details can be referenced in the facility's radiology CT exam operational policy. FINDINGS: Chest bases: Negative Liver: Normal. Gallbladder and bile ducts: Gallbladder is present. Bile ducts are normal caliber. Spleen: size is normal. Pancreas: negative Adrenal glands: negative Kidneys: Left kidney posterior upper pole small, well-defined low-density structures could represent cysts or angiomyolipomas. Pelvic structures: Low pelvic structures are obscured by metal artifact produced by the hip prosthesis. Bowel and mesenteries: There is fluid distention of the colon from the cecum to the distal descending colon. There is a moderate amount of solids within the si gmoid colon and rectum. Small bowel is unremarkable. Ascites: None Vessels: negative Musculoskeletal: Right hip prosthesis is noted. Opposing subchondral sclerosis is seen at both sacroiliac joints. Grade 1 L4-5 anterolisthesis is caused by facet bone hypertrophy. Body wall: Small umbilical hernia contains fat. Lymph node assessment: negative IMPRESSION: Fluid-filled small bowel and colon suggests a bowel inflammatory or infectious process. There is no evidence of bowel obstruction. Report Dictated By: Pushpa Briggs MD at 04/12/2018 7:18 PM Report E-Signed By: Pushpa Briggs MD at 04/12/2018 7:26 PM CHEST PA AND LAT HISTORY: Nausea. Chest pain. COMPARISON: 10/21/2017 FINDINGS: Cardiomediastinal contours: Normal Lungs and pleura: Stable eventration of the right diaphragm. No acute consolidation. Bones/soft tissues: Normal Other findings: None significant IMPRESSION: 1. No acute cardiopulmonary disease. No change. Report Dictated By: Philippe Barclay MD at 04/12/2018 7:10 PM Report E-Signed By: Philippe Barclay MD at 04/12/2018 7:11 PM ED Course/Re-evaluation ED Course Patient was admitted to an exam room, history and physical were obtained. Differential diagnoses were considered. On examination lungs are clear, heart regular, abdomen is soft and tender in the epigastric region. A CBC, CMP, EKG, troponin, chest x-ray and CT scan of abdomen and pelvis were done. Patient did have an elevated white count 14,000 with a left shift. Likewise were normal, troponin was negative. EKG showed a normal sinus rhythm. Chest x-ray showed no acute cardiopulmonary processes. CT scan of the abdomen and pelvis did show fluid-filled small bowel and large intestine consistent with an enteritis. With the elevated white count and the results CT scan that we are likely looking at a infectious enteritis. I discussed the findings with the patient. Patient did have some difficulty controlling her nausea here in the emergency room. We did give HER-2 doses of Zofran 4 mg as well as a dose of 12.5 mg of Phenergan. Patient did have improvement in her nausea. We will go ahead and discharge patient home. We'll start her on Flagyl as well as Cipro to take care of the infection. Patient did inform me that she had been on antibiotics recently, Augmentin for an otitis media, and I do have some concerns about possible C. difficile. However the patient does not have any diarrhea at this time. Patient is to follow-up with her primary care provider in the next week. She is return to emergency room if condition worsens. Patient verbalized understanding and agreement with plan. Decision to Disposition Date: Apr 12, 2018 Decision to Disposition Time: 20:00 Depart Departure Latest Vital Signs Vital Signs Date Time Temp Pulse Resp B/P (MAP) Pulse Ox O2 Delivery O2 Flow Rate FiO2 04/12/18 20:20 115 17 04/12/18 20:00 140/84 (102) 04/12/18 19:59 97 04/12/18 18:13 98.5 Room Air Impression: Primary Impression: Enteritis Condition: Improved Disposition: HOME OR SELF-CARE Referrals: MORELIA BHARDWAJ MD (PCP) New Scripts Ondansetron (ZOFRAN ODT) 4 Mg Tab.rapdis 4 MG PO Q6H PRN for NAUSEA/VOMITING, #20 TAB.LIDIA Prov: LUIS E CEJA 04/12/18 Promethazine Hcl (PROMETHAZINE HCL) 25 Mg Tablet 25 MG PO Q8H PRN for NAUSEA/VOMITING, #12 TAB Prov: LUIS E CEJA 04/12/18 Metronidazole (FLAGYL) 500 Mg Tablet 500 MG PO BID, #14 TAB Prov: LUIS E CEJA 04/12/18 Ciprofloxacin Hcl (CIPROFLOXACIN HCL) 500 Mg Tablet 500 MG PO Q12H, #14 TAB Prov: LUIS E CEJA 04/12/18 Patient Instructions: Enteritis (ED) Additional Instructions: Increase fluid intake. Clear liquid diet for the next 24-48 hours. After that you may advance diet as tolerated starting with complex carbohydrates; rice, bread or pasta. Follow up with your primary care provider in the next week. Return to the ER if condition worsens. LUIS E CEJA Apr 12, 2018 18:15
[2018-04-12] MEDS ORDERED: NS(*) 0.9% 1000 ML BAG 1,000 ML IV ONE (18:22)
[2018-04-12] MEDS ORDERED: ONDANSETRON 4 MG/2 ML VIAL IVP ONE ×2 (18:25→19:15)
[2018-04-12 18:30] LABS: PLATELET COUNT, AUTOMATED 458 K/uL (150-450)
[2018-04-12] MEDS ORDERED: IOPAMIDOL 76% 75 ML INFUS BTL 75 ML ONE (18:34)
--- NOTE | 2018-04-12 18:36 | EKG ---
FACILITY: [facility] PATIENT NAME: JUJU MARX : [id number] MR: [id number] V: [id number] EXAM DATE: ORDERING PHYSICIAN: LUIS E CEJA TECHNOLOGIST: Test Reason : Chest pain Blood Pressure : / mmHG Vent. Rate : 098 BPM Atrial Rate : 098 BPM P-R Int : 146 ms QRS Dur : 068 ms QT Int : 334 ms P-R-T Axes : 056 052 057 degrees QTc Int : 426 ms Normal sinus rhythm Septal infarct , age undetermined Abnormal ECG When compared with ECG of 10.22.2017 No significant change was found Confirmed by Gm Peterson ([id number]) on 04/12/2018 6:47:44 PM Referred By: Confirmed By:Gm Cazares
--- NOTE | 2018-04-12 19:15 | RADIOLOGY IMAGING REPORT ---
[place] [facility] [place]IENT NAME: Donna Caballero : 1960 MR: [id number] V: [id number] EXAM DATE: ORDERING PHYSICIAN: LUIS E CEJA TECHNOLOGIST: Location: [facility] [place] Patient: Donna Caballero : 1960 Visit/Account:[id number] Date of Sevice: 04/12/2018 CHEST PA AND LAT HISTORY: Nausea. Chest pain. COMPARISON: 10/21/2017 FINDINGS: Cardiomediastinal contours: Normal Lungs and pleura: Stable eventration of the right diaphragm. No acute consolidation. Bones/soft tissues: Normal Other findings: None significant IMPRESSION: 1. No acute cardiopulmonary disease. No change. Report Dictated By: Philippe Barclay MD at 04/12/2018 7:10 PM Report E-Signed By: Philippe Barclay MD at 04/12/2018 7:11 PM WSN:[id number]
--- NOTE | 2018-04-12 19:30 | RADIOLOGY IMAGING REPORT ---
FACILITY: [facility] - [place] PATIENT NAME: Donna Caballero : 1960 MR: [id number] V: [id number] EXAM DATE: ORDERING PHYSICIAN: LUIS E CEJA TECHNOLOGIST: Location: [facility] [place] Patient: Donna Caballero : 1960 Visit/Account:[id number] Date of Sevice: 04/12/2018 CT abdomen with IV contrast CT pelvis with IV contrast History: Nausea and vomiting COMPARISON STUDIES: none. TECHNIQUE: Axial CT images were obtained through the abdomen and pelvis during injection of nonioni c iodinated intravenous contrast. Reformatted coronal and sagittal images were also obtained. Contrast: 75 ml of Isovue-370 IV contrast. One of the following dose optimization techniques was utilized in the performance of this exam: Autom ated exposure control; adjustment of the mA and/or kV according to the patient's size; or use of an i terative reconstruction technique. Specific details can be referenced in the facility's radiology C T exam operational policy. FINDINGS: Chest bases: Negative Liver: Normal. Gallbladder and bile ducts: Gallbladder is present. Bile ducts are normal caliber. Spleen: size is normal. Pancreas: negative Adrenal glands: negative Kidneys: Left kidney posterior upper pole small, well-defined low-density structures could represent cysts or angiomyolipomas. Pelvic structures: Low pelvic structures are obscured by metal artifact produced by the hip prost hesis. Bowel and mesenteries: There is fluid distention of the colon from the cecum to the distal descendin g colon. There is a moderate amount of solids within the sigmoid colon and rectum. Small bowel is unr emarkable. Ascites: None Vessels: negative Musculoskeletal: Right hip prosthesis is noted. Opposing subchondral sclerosis is seen at both sacr oiliac joints. Grade 1 L4-5 anterolisthesis is caused by facet bone hypertrophy. Body wall: Small umbilical hernia contains fat. Lymph node assessment: negative IMPRESSION: Fluid-filled small bowel and colon suggests a bowel inflammatory or infectious process. There is no e vidence of bowel obstruction. Report Dictated By: Pushpa Briggs MD at 04/12/2018 7:18 PM Report E-Signed By: Pushpa Briggs MD at 04/12/2018 7:26 PM WSN:[id number]
[2018-04-12] MEDS ORDERED: METR-1 PO (19:58)
[2018-04-12] MEDS ORDERED: PROM-110 PO (19:58)
[2018-04-12] MEDS ORDERED: ONDA4TAB PO (19:58)
[2018-04-12] MEDS ORDERED: CIPR-214 PO (19:58)
[2018-04-12 20:00] VITALS: BP 140/84
[2018-04-12] MEDS ORDERED: PROMETHAZINE 25 MG/ML 1 ML AMP IVP ONE (20:00)
== END 2018-04-12 20:30 | disposition home or self-care (01) ==
LOC: ER 18:34
DX: K52.9 Noninfective gastroenteritis and colitis, unspecified (principal)
CPT/HCPCS: 71046; 74177; 81001; 82150; 83690; 84484; 85025; 93005; 96361; 96374; 96375; 96376; 99284; J2405; J2550; J7030; Q9967; 82040; 82247; 82310; 82374; 82435; 82565; 82947; 84075; 84132; 84155; 84295; 84450; 84460; 84520

== ENCOUNTER → 2018-04-19 | Outpatient (REF) | payer BC ==
[2015-09-07 12:22] VITALS: BMI 23.5
[~2018-04-19] MED LIST changes: +CIPR-214 PO; +PROM-110 PO
== END ==
LOC: ZZSENDIN 17:08
PROVIDERS: ATTEND Family Medicine
DX: D50.9 Iron deficiency anemia, unspecified (principal)
CPT/HCPCS: 36415; 85651

== ENCOUNTER 2018-05-04 01:52 | Day surgery (SDC) | payer BC ==
[2015-09-07 12:22] VITALS: Ht 167.6 cm; Wt 59.4 kg
[~2018-05-04] VITALS: Ht 167.6 cm; Wt 59.4 kg
[2018-05-04] MEDS ORDERED: NORMOSOL R SOLN(*) 1000 ML BAG 1,000 ML IV PRN (09:45)
[2018-05-04] MEDS ORDERED: LIDOCAINE/SOD BICARB 8.4% SYR ID ONE (09:45)
[2018-05-04 10:07] VITALS: BP 110/84
[2018-05-04] MEDS ORDERED: PROPOFOL EMUL(*) 10MG/ML 20 ML 60 ML ONE (11:44)
[2018-05-04] MEDS ORDERED: LIDOCAINE MPF 1% 5 ML VIAL ONE (11:44)
[2018-05-04] MEDS ORDERED: PROPOFOL EMUL(*) 10MG/ML 20 ML 40 ML ONE (12:12)
[2018-05-04 13:07] VITALS: BP 100/70
--- NOTE | 2018-05-04 13:21 | Post Operative Note ---
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 EGD with hot snare excision of polyp in 1st portion of duodenum 2. Colonoscopy to cecum Procedure: EGD - sedation administered. Patient rolled onto his left side. Scope passed easily into the esophagus. Advanced to the 2nd portion of the duodenum. Polypoid lesion measuring about 8mm in 1st portion of duodenum. This was removed with a hot snare. It appeared to be a submucosal lipoma by appearance. An endoscopic retrieval basket was unavailable and it was too large to bring out through the suction port. It was lost in an attempt to pull it out by pinning it to the end of the scope with suction. Pictures taken of the lesion also were not successful due to a fault in the connection between the scope and the computer capturing pictures. The remainder of the stomach exam was normal. The Z-Line was regular at 37cm. The esophagus was normal in appearance. Colonoscopy: External examination was significant for skin tags. RUTH was normal. The scope was advanced to the cecum without difficulty. The prep was good with liquid stool that was able to be aspirated. The cecum was identified by the ileocecal valve. Withdraw of the scope did not reveal any polyps or diverticulosis. Internal hemorrhoids were were identifed on retroflexion in the rectum. She tolerated the procedure well. Specimen Removed:(Maybe N/A): duodenal polyp resected but not recovered. Complications: None Fluids Fluids: 1100ml Estimated Blood Loss: none Dictated Copies to: MORELIA BHARDWAJ MD ; MITA MANSFIELD MD May 04, 2018 13:21
[2018-05-04 13:35] VITALS: BP 104/73
[2018-05-04 14:05] VITALS: BP 106/74
[2018-05-04 14:09] VITALS: BP 112/71
[2018-05-04 14:13] VITALS: BP 111/72
[2018-05-05] MEDS ORDERED: PANT40TA65 PO (11:08)
== END 2018-05-04 14:20 | disposition home or self-care (01) ==
LOC: OR 01:52
PROVIDERS: ATTEND Surgery
DX: K64.8 Other hemorrhoids (principal); K64.4 Residual hemorrhoidal skin tags; D17.5 Benign lipomatous neoplasm of intra-abdominal organs; F32.9 Major depressive disorder, single episode, unspecified; Z79.899 Other long term (current) drug therapy
CPT/HCPCS: 43251; 45378; J2001; J2704